=== PATIENT | female | born 1955 | race Caucasian/White ===

== ENCOUNTER 2020-08-16 06:39 | Inpatient (IN) | payer OTHER ==
[~2020-08-16] VITALS: Ht 157.5 cm; Wt 90.7 kg
[2020-08-16 08:08] LABS: HEMOGLOBIN 12.3 gm/dl (12.3-15.3); RED BLOOD COUNT 4.27 M/UL (4.00-5.10); WHITE BLOOD COUNT 17.5 K/UL (4.5-11.0)
[2020-08-16 09:09] LABS: BUN/CREATININE RATIO 11 (0-10)
[2020-08-16] MEDS ORDERED: TIZANIDINE HCL4 MG PO (12:02)
[2020-08-16] MEDS ORDERED: HYDROCODON-ACE1 EAC2 PO (12:03)
[2020-08-16] MEDS ORDERED: OMEPRAZOLE40 MG PO (12:03)
[2020-08-16] MEDS ORDERED: ZETIA10 MG PO (12:03)
[2020-08-16] MEDS ORDERED: METOPROLOL SUCC25 MG PO (12:04)
[2020-08-16] MEDS ORDERED: LEVOTHYROXINE100 MCG PO (12:04)
[2020-08-16] MEDS ORDERED: LORAZEPAM2 MG PO (12:05)
[2020-08-16] MEDS ORDERED: MECLIZINE HCL25 MG PO (12:06)
[2020-08-16] MEDS ORDERED: FLUOXETINE HCL40 MG PO (12:07)
[2020-08-16] MEDS ORDERED: ATORVASTATIN CA80 MG PO (12:07)
[2020-08-16] MEDS ORDERED: ONDANSETRON ODT8 MG PO (12:07)
[2020-08-16] MEDS ORDERED: GABAPENTIN300 MG PO (12:08)
[2020-08-16] MEDS ORDERED: SPIRONOLACTONE25 MG PO (12:09)
[2020-08-16] MEDS ORDERED: PROAIR HFA8.5 GM INH (12:10)
[2020-08-16] MEDS ORDERED: POTASSIUM CHLO10 ME1 PO (12:11)
[2020-08-16] MEDS ORDERED: ALLER-CHLOR4 MG PO (12:12)
[2020-08-16] MEDS ORDERED: NAPROXEN SODIU220 MG PO (12:13)
[2020-08-16] MEDS ORDERED: ECOTRIN81 MG PO (12:13)
[2020-08-16] MEDS ORDERED: DEMADEX 20 MG T20 MG PO (12:16)
[2020-08-16] MEDS ORDERED: BUMETANIDE2 MG PO (12:18)
[2020-08-17 02:16] LABS: HEMOGLOBIN 13.2 gm/dl (12.3-15.3); RED BLOOD COUNT 4.65 M/UL (4.00-5.10); WHITE BLOOD COUNT 14.1 K/UL (4.5-11.0)
--- NOTE | 2020-08-17 12:32 | NUR ---
PT LEFT LEWIS ONCE HER ZOSYN WAS DONE. SHE WAS NOTIFED OF ALL THE REASONS WHY THEY WANTED TO KEEP HER ONE MORE DAY BUT SHE STATED THAT SHE WOULD MONITOR IT AND FOLLOW UP WITH HER DOCTORS BACK IN [facility].
== END 2020-08-17 12:29 | disposition left against medical advice (07) | DRG 871 ==
LOC: ER1 06:39 → CDU 09:57 → PROG CARE 13:50
PROVIDERS: Emergency Medicine; Physician Assistant Medical; ADMIT Internal Medicine
PROC: 3E033XZ Introduction of Vasopressor into Peripheral Vein, Percutaneous Approach (ICD-10-PCS; principal; 2020-08-16)
PROC: B24BZZ4 Ultrasonography of Heart with Aorta, Transesophageal (ICD-10-PCS; 2020-08-16)
DX: A41.9 Sepsis, unspecified organism (principal); G93.41 Metabolic encephalopathy; R65.21 Severe sepsis with septic shock; A09 Infectious gastroenteritis and colitis, unspecified; N39.0 Urinary tract infection, site not specified; J98.11 Atelectasis; Z20.822 Contact with and (suspected) exposure to COVID-19; I11.0 Hypertensive heart disease with heart failure; I50.9 Heart failure, unspecified; E03.9 Hypothyroidism, unspecified; I25.10 Atherosclerotic heart disease of native coronary artery without angina pectoris; K59.00 Constipation, unspecified; E86.0 Dehydration; I07.1 Rheumatic tricuspid insufficiency; E78.5 Hyperlipidemia, unspecified; Z86.73 Personal history of transient ischemic attack (TIA), and cerebral infarction without residual deficits; Z95.1 Presence of aortocoronary bypass graft; Z87.891 Personal history of nicotine dependence; Z88.6 Allergy status to analgesic agent; Z88.8 Allergy status to other drugs, medicaments and biological substances; Z90.49 Acquired absence of other specified parts of digestive tract; Z82.49 Family history of ischemic heart disease and other diseases of the circulatory system; Z83.3 Family history of diabetes mellitus; Z80.9 Family history of malignant neoplasm, unspecified; Z79.82 Long term (current) use of aspirin
CPT/HCPCS: ECHO; 0240U; 36415; 36600; 51702; 70450; 70551; 71045; 80048; 80053; 81001; 82550; 82553; 82803; 83605; 83690; 83735; 83874; 83880; 84484; 85025; 85027; 85610; 85730; 87040; 87086; 93005; 93306; 96374; 96375; 97161; 97166; 99285; J0696; J1650; J2543